=== PATIENT | female | born 1990 | race Caucasian/White ===

== ENCOUNTER → 2017-08-01 | Outpatient (CLI) | payer BC ==
[2017-08-01 11:59] LABS: HEMOGLOBIN 12.7 g/dl (12.5-16.0); MEAN CELL VOLUME 97 fl (80.0-100.0); MEAN CORPUSCULAR HEMOGLOBIN 33 pg (27.0-31.0); MEAN CORPUSCULAR HGB CONC 33 g/dl (33.0-37.0); MEAN PLATELET VOLUME 9.7 fl (7.4-10.4); PLATELET COUNT 233 K/mm3 (130-400); WHITE BLOOD COUNT 4.9 K/mm3 (4.8-10.8)
[2017-08-01 12:49] LABS: ADJUSTED CALCIUM 8.8 mg/dL (8.4-10.2); ALBUMIN 4.2 gm/dL (3.5-5.0); BILIRUBIN,TOTAL 0.8 mg/dL (0.0-1.0); CREATININE, serum 0.62 mg/dL (0.52-1.25); POTASSIUM 4.1 mmol/L (3.4-5.0); THYROXINE (T4)-TOTAL 8.1 ug/dL (5.5-11.0); TOTAL PROTEIN 7.2 gm/dL (6.4-8.2)
[2017-08-01 12:55] LABS: THYROID STIMULATING HORMONE 0.902 uIU/mL (0.465-4.680)
== END ==
LOC: COL.LAB 11:10
PROVIDERS: Psychiatry & Neurology Psychiatry
DX: F41.1 Generalized anxiety disorder (principal)